=== PATIENT | female | born 1935 | race Caucasian/White ===

== ENCOUNTER 2017-11-08 14:23 | Inpatient (IN) | payer MEDICARE, OTHER ==
[2017-11-08] MEDS ORDERED: Sodium Chloride 0.9% 2.5 ML Syringe FLUSH PRN (14:52)
[2017-11-08] MEDS ORDERED: Sodium Chloride 0.9% 10 ML Syringe FLUSH PRN (14:52)
[2017-11-08] MEDS ORDERED: Albuterol/Ipratropium 3.0-0.5 MG/3 ML Neb Soln NEB ONE (14:57)
--- NOTE | 2017-11-08 15:01 | EDM.PDOC ---
<Rene Matute J - Last Filed: 11/08/17 14:58> ED HPI GENERAL MEDICAL PROBLEM - General Chief Complaint: General Stated Complaint: COLD COUGHING Time Seen by Provider: 11/08/17 14:54 - History of Present Illness INITIAL COMMENTS - FREE TEXT/NARRATIVE: HISTORY AND PHYSICAL: History of present illness: Patient is an 82-year-old white female presents with a concern of fever cough congestion 3 days she has history of COPD she uses O2 and home nebulizer. She denies nausea vomiting chest pain abdominal pain she did not get immunized for influenza this year pulse oximetry 88% on room air upon arrival Review of systems: As per history of present illness and below otherwise all systems reviewed and negative. Past medical history: As per history of present illness and as reviewed below otherwise noncontributory. Surgical history: As per history of present illness and as reviewed below otherwise noncontributory. Social history: No reported history of drug or alcohol abuse. Family history: As per history of present illness and as reviewed below otherwise noncontributory. Physical exam: HEENT: Atraumatic, normocephalic, pupils reactive, negative for conjunctival pallor or scleral icterus, mucous membranes moist, throat clear, neck supple, nontender, trachea midline. Lungs: Slightly coarse and diminished bilaterally, breath sounds equal bilaterally, chest nontender. Heart: S1S2, regular, negative for clicks, rubs, or JVD. Abdomen: Soft, nondistended, nontender. Negative for masses or hepatosplenomegaly. Negative for costovertebral tenderness. Pelvis: Stable nontender. Genitourinary: Deferred. Rectal: Deferred. Extremities: Atraumatic, negative for cords or calf pain. Neurovascular unremarkable. Neuro: Awake, alert, oriented. Cranial nerves II through XII unremarkable. Cerebellum unremarkable. Motor and sensory unremarkable throughout. Exam nonfocal. Diagnostics: CBC CMP troponin PT/INR lactic acid blood culture 2 UA urine culture chest x- ray EKG influenza screen ABG Therapeutics: IV O2 monitor albuterol ipratropium nebulizer Impression: #1 acute febrile illness #2 history of COPD #3 hypoxemia Definitive disposition and diagnosis as appropriate pending reevaluation and review of above. - Related Data Allergies Allergy/AdvReac Type Severity Reaction Status Date / Time No Known Allergies Allergy Verified 07/06/15 14:28 Home Meds: Home Meds Aspirin 81 mg PO DAILY 12/26/17 [History] Budesonide/Formoterol Fumarate [Symbicort 160-4.5 Mcg Inhaler] 1 inh IH ASDIRECTED PRN 11/08/17 [History] Fluticasone/Salmeterol [Advair 250-50 Diskus] 3 inhalation IH ASDIRECTED PRN [History] Furosemide [Lasix] 20 mg PO DAILY 11/08/17 [History] Lisinopril/Hydrochlorothiazide [Lisinopril-Hctz 20-12.5 mg Tab] 2 tab PO DAILY 11/08/17 [History] Montelukast [Singulair] 1 tab PO DAILY 11/08/17 [History] Potassium Chloride [Klor-Con M20] 20 meq PO DAILY 11/08/17 [History] Social & Family History - Tobacco Use Smoking Status *Q: Former Smoker Years of Tobacco use: 30 Packs/Tins Daily: 3 - Recreational Drug Use Recreational Drug Use: No ED ROS GENERAL - Review of Systems Review Of Systems: ROS reveals no pertinent complaints other than HPI. ED EXAM, GENERAL - Physical Exam Exam: See Below (See dictation) Course - Vital Signs Last Recorded V/S: Last Vital Signs Temp 100.2 F 11/08/17 14:56 Pulse 114 H 11/08/17 14:56 Resp 24 H 11/08/17 14:56 BP 126/60 11/08/17 14:56 Pulse Ox 85 L 11/08/17 14:56 - Orders/Labs/Meds Orders: Active Orders 24 hr Category Date Time Status EKG Documentation Completion [RC] STAT Care 11/08/17 14:52 Active Oxygen Therapy, ED [RC] ASDIRECTED Care 11/08/17 14:52 Active Pulse Oximetry [RC] ASDIRECTED Care 11/08/17 14:53 Active RT Aerosol Therapy [RC] ASDIRECTED Care 11/08/17 14:57 Active Chest 1V Frontal [CR] Stat Exams 11/08/17 14:54 Taken CULTURE BLOOD [BC] Stat Lab 11/08/17 15:11 Received CULTURE BLOOD [BC] Stat Lab 11/08/17 15:16 Results CULTURE URINE [RM] Stat Lab 11/08/17 14:53 Uncollected UA W/MICROSCOPIC [URIN] Stat Lab 11/08/17 14:53 Uncollected Levofloxacin/Dextrose 5%-Water [Levaquin in D5W 500 MG/ Med 11/08/17 15:57 Active 100 ML] 500 mg Premix Bag 1 bag IV ONETIME Sodium Chloride 0.9% [Normal Saline] 1,000 ml Med 11/08/17 15:57 Active IV STAT Sodium Chloride 0.9% [Saline Flush] Med 11/08/17 14:52 Active 10 ml FLUSH ASDIRECTED PRN Sodium Chloride 0.9% [Saline Flush] Med 11/08/17 14:52 Active 2.5 ml FLUSH ASDIRECTED PRN Blood Culture x2 Reflex Set [OM.PC] Stat Oth 11/08/17 14:53 Ordered Saline Lock Insert [OM.PC] Stat Oth 11/08/17 14:52 Ordered Medication Orders Levofloxacin/Dextrose 500 mg/ (Premix) 100 mls @ 100 mls/hr IV ONETIME ONE Stop: 11/08/17 16:56 Sodium Chloride (Normal Saline) 1,000 mls @ 125 mls/hr IV STAT ONE Stop: 11/08/17 23:56 Sodium Chloride (Saline Flush) 10 ml FLUSH ASDIRECTED PRN PRN Reason: Keep Vein Open Last Admin: 11/08/17 15:31 Dose: 10 ml Sodium Chloride (Saline Flush) 2.5 ml FLUSH ASDIRECTED PRN PRN Reason: Keep Vein Open Last Admin: 11/08/17 15:31 Dose: 2.5 ml Labs: Laboratory Tests 11/08/17 11/08/17 11/08/17 Range/Units 15:11 15:11 15:11 WBC 22.32 H (4.0-11.0) K/uL RBC 4.43 (4.30-5.90) M/uL Hgb 13.0 (12.0-16.0) g/dL Hct 39.3 (36.0-46.0) % MCV 88.7 (80.0-98.0) fL MCH 29.3 (27.0-32.0) pg MCHC 33.1 (31.0-37.0) g/dL RDW Std Deviation 45.4 (28.0-62.0) fl RDW Coeff of Alexandro 14 (11.0-15.0) % Plt Count 297 (150-400) K/uL MPV 10.50 (7.40-12.00) fL Add Manual Diff YES Neutrophils % (Manual) 77 (48.0-80.0) % Band Neutrophils % 9 % Lymphocytes % (Manual) 6 L (16.0-40.0) % Monocytes % (Manual) 6 (0.0-15.0) % Metamyelocytes % 1 % Myelocytes % 1 % Nucleated RBC % 0.0 /100WBC Absolute Seg Neuts 17.2 H (1.4-5.7) Band Neutrophils # 2.0 Lymphocytes # (Manual) 1.3 (0.6-2.4) Monocytes # (Manual) 1.3 H (0.0-0.8) Absolute Metamyelocyte 0.2 Absolute Myelocytes 0.2 Nucleated RBCs # 0 K/uL INR 1.07 (0.86-1.11) ABG pH (7.35-7.45) ABG pCO2 (35-45) mmHG ABG pO2 (75-100) mmHG ABG HCO3 (22-26) mEq/L ABG Total CO2 ABG Base Excess (-2.0-2.0) Lactate 2.2 H (0.20-2.00) mmol/L Sodium (136-146) mmol/L Potassium (3.5-5.1) mmol/L Chloride (98-110) mmol/L Carbon Dioxide (21-31) mmol/L BUN (6.0-23.0) mg/dL Creatinine (0.6-1.5) mg/dL Est Cr Clr Drug Dosing mL/min Estimated GFR (MDRD) ml/min Glucose (60-110) mg/dL Calcium (8.8-10.8) mg/dL Total Bilirubin (0.1-1.5) mg/dL AST (5-40) IU/L ALT (8-54) IU/L Alkaline Phosphatase (40-150) Troponin I (0.0-0.29) NG/ML B-Natriuretic Peptide (<100) PG/ML Total Protein (6.0-8.0) g/dL Albumin (3.4-4.8) g/dL Globulin (2.0-3.5) g/dL Albumin/Globulin Ratio (1.3-2.8) 12/11/08/17 11/08/17 Range/Units 15:11 15:11 15:46 WBC (4.0-11.0) K/uL RBC (4.30-5.90) M/uL Hgb (12.0-16.0) g/dL Hct (36.0-46.0) % MCV (80.0-98.0) fL MCH (27.0-32.0) pg MCHC (31.0-37.0) g/dL RDW Std Deviation (28.0-62.0) fl RDW Coeff of Alexandro (11.0-15.0) % Plt Count (150-400) K/uL MPV (7.40-12.00) fL Add Manual Diff Neutrophils % (Manual) (48.0-80.0) % Band Neutrophils % % Lymphocytes % (Manual) (16.0-40.0) % Monocytes % (Manual) (0.0-15.0) % Metamyelocytes % % Myelocytes % % Nucleated RBC % /100WBC Absolute Seg Neuts (1.4-5.7) Band Neutrophils # Lymphocytes # (Manual) (0.6-2.4) Monocytes # (Manual) (0.0-0.8) Absolute Metamyelocyte Absolute Myelocytes Nucleated RBCs # K/uL INR (0.86-1.11) ABG pH 7.517 H (7.35-7.45) ABG pCO2 34 L (35-45) mmHG ABG pO2 79 (75-100) mmHG ABG HCO3 28 H (22-26) mEq/L ABG Total CO2 24.8 ABG Base Excess 4.9 H (-2.0-2.0) Lactate (0.20-2.00) mmol/L Sodium 138 (136-146) mmol/L Potassium 4.0 (3.5-5.1) mmol/L Chloride 98 (98-110) mmol/L Carbon Dioxide 26 (21-31) mmol/L BUN 21 (6.0-23.0) mg/dL Creatinine 1.2 (0.6-1.5) mg/dL Est Cr Clr Drug Dosing 34.42 mL/min Estimated GFR (MDRD) 43.1 ml/min Glucose 289 H (60-110) mg/dL Calcium 9.6 (8.8-10.8) mg/dL Total Bilirubin 1.3 (0.1-1.5) mg/dL AST 17 (5-40) IU/L ALT 15 (8-54) IU/L Alkaline Phosphatase 93 (40-150) Troponin I < 0.10 (0.0-0.29) NG/ML B-Natriuretic Peptide 28 (<100) PG/ML Total Protein 7.2 (6.0-8.0) g/dL Albumin 4.0 (3.4-4.8) g/dL Globulin 3.2 (2.0-3.5) g/dL Albumin/Globulin Ratio 1.3 (1.3-2.8) Meds: Medications Generic Name Dose Route Start Last Admin Trade Name Freq PRN Reason Stop Dose Admin Levofloxacin/Dextrose 500 mg/ 100 mls @ 100 mls/hr 11/08/17 15:57 Premix IV 11/08/17 16:56 ONETIME ONE Sodium Chloride 1,000 mls @ 125 mls/hr 11/08/17 15:57 Normal Saline IV 11/08/17 23:56 STAT ONE Sodium Chloride 10 ml 11/08/17 14:52 11/08/17 15:31 Saline Flush FLUSH 10 ml ASDIRECTED PRN Administration Keep Vein Open Sodium Chloride 2.5 ml 11/08/17 14:52 11/08/17 15:31 Saline Flush FLUSH 2.5 ml ASDIRECTED PRN Administration Keep Vein Open Discontinued Medications Generic Name Dose Route Start Last Admin Trade Name Freq PRN Reason Stop Dose Admin Albuterol/Ipratropium 3 ml 11/08/17 14:57 11/08/17 15:23 Duoneb 3.0-0.5 Mg/3 Ml NEB 11/08/17 14:58 3 ml ONETIME ONE Administration Departure - Departure Disposition: Admitted As Inpatient 67 Clinical Impression: Hypoxemia Pneumonia Qualifiers: Pneumonia type: due to unspecified organism Laterality: right Lung location: lower lobe of lung Qualified Code(s): J18.1 - Lobar pneumonia, unspecified organism COPD (chronic obstructive pulmonary disease) Qualifiers: COPD type: unspecified COPD Qualified Code(s): J44.9 - Chronic obstructive pulmonary disease, unspecified - Discharge Information Referrals: PCP,None [Primary Care Provider] - Forms: ED Department Discharge - My Orders Last 24 Hours: My Active Orders 11/08/17 15:57 Levofloxacin/Dextrose 5%-Water [Levaquin in D5W 500 MG/100 ML] 500 mg Premix Bag 1 bag IV ONETIME Sodium Chloride 0.9% [Normal Saline] 1,000 ml IV STAT - Assessment/Plan Last 24 Hours: My Active Orders 11/08/17 15:57 Levofloxacin/Dextrose 5%-Water [Levaquin in D5W 500 MG/100 ML] 500 mg Premix Bag 1 bag IV ONETIME Sodium Chloride 0.9% [Normal Saline] 1,000 ml IV STAT <Fernando Colbert - Last Filed: 11/08/17 16:21> ED HPI GENERAL MEDICAL PROBLEM - History of Present Illness INITIAL COMMENTS - FREE TEXT/NARRATIVE: CBC has a white count of 22.32, lactic acid of 2.2, chest x-ray was reviewed, she will be admitted to [facility] - per Dr. Spencer as an inpatient for pneumonia r/o sepsis. Will place patient on telemetry. Departure - Departure Time of Disposition: 16:20
[2017-11-08 15:52] LABS: CHLORIDE,CL 98 mmol/L (98-110); SODIUM,NA 138 mmol/L (136-146)
[2017-11-08] MEDS ORDERED: Levofloxacin/Dextrose 5%-Water 250 MG in Premix Bag 1 BAG IV ONE (15:57)
[2017-11-08] MEDS ORDERED: Sodium Chloride 0.9% 1,000 ML IV ONE (15:57)
[2017-11-08] MEDS ORDERED: Levofloxacin/Dextrose 5%-Water 500 MG in Premix Bag 1 BAG IV ONE (15:57)
--- NOTE | 2017-11-08 17:05 | PCM.HP ---
H&P History of Present Illness - General Date of Service: 11/08/17 Admit Problem/Dx: Admission Diagnosis/Problem Admission Diagnosis/Problem Pneumonia Source of Information: Patient, Family History Limitations: Reports: No Limitations - History of Present Illness Initial Comments - Free Text/Narative: This 82 year old female ith h of COPD and HTN presented to the ED today with cough, shortness of breath and general malaise. She reports 1 week ago she had an URI and took mucinex then felt better. Yesterday she started feeling ill again and hasn't been eating or drinking well. She denies fever at home, some productive cough, green phelgm. She reports feeling generally ill with poor appetite. She denies chest pain, but is having dyspnea. She did not get her influenza vaccine this year, "I don't believe it those things." She recently had a sick contact with a grandchild, who was diagnosed with strep throat. She denies sore throat, sinus congestion, headaches, abdominal pain or urinary symptoms. In the ED leukocytosis noted at 22,320. Respiratory alkalosis noted as well pH 7.5 Co2 34 and O2 79, Bicarb 29. Lactate elevated at 2.2. Troponin negative and influenza swab negative. She was noted to be hypoxic and tacycardic on admission. BC obtained and pending. CXR revealed bilateral infiltrates. She was treated with IVFs and Levaquin IV for pneumonia. She will be admitted for sepsis , CAP, and hypoxia. - Related Data Allergies/Adverse Reactions: Allergies Allergy/AdvReac Type Severity Reaction Status Date / Time No Known Allergies Allergy Verified 07/06/15 14:28 Home Medications: Home Meds Aspirin 81 mg PO DAILY 11/08/17 [History] Budesonide/Formoterol Fumarate [Symbicort 160-4.5 Mcg Inhaler] 1 inh IH ASDIRECTED PRN 11/08/17 [History] Fluticasone/Salmeterol [Advair 250-50 Diskus] 3 inhalation IH ASDIRECTED PRN [History] Furosemide [Lasix] 20 mg PO DAILY 11/08/17 [History] Lisinopril/Hydrochlorothiazide [Lisinopril-Hctz 20-12.5 mg Tab] 2 tab PO DAILY 11/08/17 [History] Montelukast [Singulair] 10 tab PO DAILY 11/08/17 [History] Potassium Chloride [Klor-Con M20] 20 meq PO DAILY 11/08/17 [History] Past Medical History HEENT History: Reports: None Cardiovascular History: Reports: Hypertension. Denies: Afib, Blood Clots/VTE/ DVT, CAD, Heart Failure, [place] Respiratory History: Reports: Asthma, COPD. Denies: PE Gastrointestinal History: Reports: None. Denies: GERD, GI Bleed Genitourinary History: Reports: None. Denies: Acute Renal Failure, Chronic Renal Insuffiency [employer] PROVIDER History: Reports: None Musculoskeletal History: Reports: None Neurological History: Reports: None. Denies: CVA, TIA Psychiatric History: Reports: None Endocrine/Metabolic History: Reports: Obesity/BMI 30+. Denies: Diabetes, Type II, Hypothyroidism Hematologic History: Reports: None Immunologic History: Reports: None Oncologic (Cancer) History: Reports: None Dermatologic History: Reports: None - Infectious Disease History Infectious Disease History: Reports: Chicken Pox, Hepatitis non A,B,C, Measles, Mumps - Past Surgical History Head Surgeries/Procedures: Reports: None HEENT Surgical History: Reports: None Cardiovascular Surgical History: Reports: None Respiratory Surgical History: Reports: None GI Surgical History: Reports: Other (See Below) Female Surgical History: Reports: None Endocrine Surgical History: Reports: None Musculoskeletal Surgical History: Reports: None Oncologic Surgical History: Reports: None Dermatological Surgical History: Reports: None Social & Family History - Family History Family Medical History: Noncontributory - Tobacco Use Smoking Status *Q: Former Smoker Years of Tobacco use: 30 Packs/Tins Daily: 3 Used Tobacco, but Quit: Yes - Caffeine Use Caffeine Use: Reports: None - Alcohol Use Alcohol Use History: No - Recreational Drug Use Recreational Drug Use: No - Living Situation & Occupation Living situation: Reports: with Spouse Occupation: Retired H&P Review of Systems - Review of Systems: Review Of Systems: See Below General: Reports: Malaise, Fatigue, Decreased Appetite. Denies: Fever, Chills HEENT: Reports: No Symptoms. Denies: Headaches, Hearing Changes, Sinus Congestion, Sore Throat, Visual Changes Pulmonary: Reports: Shortness of Breath, Cough, Sputum. Denies: Hemoptysis Cardiovascular: Reports: No Symptoms. Denies: Chest Pain, Dyspnea on Exertion, Orthopnea, Lightheadedness Gastrointestinal: Reports: Decreased Appetite. Denies: Abdominal Pain, Black Stool, Bloody Stool, Distension, Nausea, Vomiting Genitourinary: Reports: No Symptoms. Denies: Dysuria, Frequency, Burning, Pain , Urgency Musculoskeletal: Reports: No Symptoms Skin: Reports: No Symptoms Psychiatric: Reports: No Symptoms. Denies: Confusion Hematologic/Lymphatic: Reports: No Symptoms Immunologic: Reports: No Symptoms Exam - Exam Exam: See Below - Vital Signs Vital Signs: Last Vital Signs Temp 100.2 F 11/08/17 14:56 Pulse 114 H 11/08/17 14:56 Resp 24 H 11/08/17 14:56 BP 126/60 11/08/17 14:56 Pulse Ox 85 L 11/08/17 14:56 Weight: 90.718 kg - Exam General: Alert, Oriented, Cooperative HEENT: Conjunctiva Clear. No: Mucosa Moist & [place] (dry mucus membranes) Neck: Supple, Trachea Midline, Full Range of Motion. No: Lymphadenopathy Lungs: Decreased Breath Sounds (bilaterally), Crackles (fine crackles bilaterally), Other (moist congested cough noted). No: Wheezing Cardiovascular: Regular Rate, Regular Rhythm, Normal S1, Normal S2 GI/Abdominal Exam: Normal Bowel Sounds, Soft, Non-Tender, No Organomegaly, No Distention, No Abnormal Bruit, No Mass, Pelvis Stable Back Exam: Normal Inspection, Full Range of Motion, NT Extremities: Normal Inspection, Normal Range of Motion, Non-Tender, No Pedal Edema, Normal Capillary Refill Neuro Extensive - Mental Status: Alert, Oriented x3, Normal Mood/Affect, Normal Cognition Neuro Extensive - Motor, Sensory, Reflexes: CN II-XII Intact, Normal Gait, Normal Reflexes Psychiatric: Alert, Normal Affect, Normal Mood - Patient Data Lab Results Last 24 hrs: Laboratory Results - last 24 hr 11/08/17 11/08/17 11/08/17 Range/Units 15:11 15:11 15:11 WBC 22.32 H (4.0-11.0) K/uL RBC 4.43 (4.30-5.90) M/uL Hgb 13.0 (12.0-16.0) g/dL Hct 39.3 (36.0-46.0) % MCV 88.7 (80.0-98.0) fL MCH 29.3 (27.0-32.0) pg MCHC 33.1 (31.0-37.0) g/dL RDW Std Deviation 45.4 (28.0-62.0) fl RDW Coeff of Alexandro 14 (11.0-15.0) % Plt Count 297 (150-400) K/uL MPV 10.50 (7.40-12.00) fL Add Manual Diff YES Neutrophils % (Manual) 77 (48.0-80.0) % Band Neutrophils % 9 % Lymphocytes % (Manual) 6 L (16.0-40.0) % Monocytes % (Manual) 6 (0.0-15.0) % Metamyelocytes % 1 % Myelocytes % 1 % Nucleated RBC % 0.0 /100WBC Absolute Seg Neuts 17.2 H (1.4-5.7) Band Neutrophils # 2.0 Lymphocytes # (Manual) 1.3 (0.6-2.4) Monocytes # (Manual) 1.3 H (0.0-0.8) Absolute Metamyelocyte 0.2 Absolute Myelocytes 0.2 Nucleated RBCs # 0 K/uL INR 1.07 (0.86-1.11) ABG pH (7.35-7.45) ABG pCO2 (35-45) mmHG ABG pO2 (75-100) mmHG ABG HCO3 (22-26) mEq/L ABG Total CO2 ABG Base Excess (-2.0-2.0) Lactate 2.2 H (0.20-2.00) mmol/L Sodium (136-146) mmol/L Potassium (3.5-5.1) mmol/L Chloride (98-110) mmol/L Carbon Dioxide (21-31) mmol/L BUN (6.0-23.0) mg/dL Creatinine (0.6-1.5) mg/dL Est Cr Clr Drug Dosing mL/min Estimated GFR (MDRD) ml/min Glucose (60-110) mg/dL Calcium (8.8-10.8) mg/dL Total Bilirubin (0.1-1.5) mg/dL AST (5-40) IU/L ALT (8-54) IU/L Alkaline Phosphatase (40-150) Troponin I (0.0-0.29) NG/ML B-Natriuretic Peptide (<100) PG/ML Total Protein (6.0-8.0) g/dL Albumin (3.4-4.8) g/dL Globulin (2.0-3.5) g/dL Albumin/Globulin Ratio (1.3-2.8) 11/08/17 11/08/17 11/08/17 Range/Units 15:11 15:11 15:46 WBC (4.0-11.0) K/uL RBC (4.30-5.90) M/uL Hgb (12.0-16.0) g/dL Hct (36.0-46.0) % MCV (80.0-98.0) fL MCH (27.0-32.0) pg MCHC (31.0-37.0) g/dL RDW Std Deviation (28.0-62.0) fl RDW Coeff of Alexandro (11.0-15.0) % Plt Count (150-400) K/uL MPV (7.40-12.00) fL Add Manual Diff Neutrophils % (Manual) (48.0-80.0) % Band Neutrophils % % Lymphocytes % (Manual) (16.0-40.0) % Monocytes % (Manual) (0.0-15.0) % Metamyelocytes % % Myelocytes % % Nucleated RBC % /100WBC Absolute Seg Neuts (1.4-5.7) Band Neutrophils # Lymphocytes # (Manual) (0.6-2.4) Monocytes # (Manual) (0.0-0.8) Absolute Metamyelocyte Absolute Myelocytes Nucleated RBCs # K/uL INR (0.86-1.11) ABG pH 7.517 H (7.35-7.45) ABG pCO2 34 L (35-45) mmHG ABG pO2 79 (75-100) mmHG ABG HCO3 28 H (22-26) mEq/L ABG Total CO2 24.8 ABG Base Excess 4.9 H (-2.0-2.0) Lactate (0.20-2.00) mmol/L Sodium 138 (136-146) mmol/L Potassium 4.0 (3.5-5.1) mmol/L Chloride 98 (98-110) mmol/L Carbon Dioxide 26 (21-31) mmol/L BUN 21 (6.0-23.0) mg/dL Creatinine 1.2 (0.6-1.5) mg/dL Est Cr Clr Drug Dosing 34.42 mL/min Estimated GFR (MDRD) 43.1 ml/min Glucose 289 H (60-110) mg/dL Calcium 9.6 (8.8-10.8) mg/dL Total Bilirubin 1.3 (0.1-1.5) mg/dL AST 17 (5-40) IU/L ALT 15 (8-54) IU/L Alkaline Phosphatase 93 (40-150) Troponin I < 0.10 (0.0-0.29) NG/ML B-Natriuretic Peptide 28 (<100) PG/ML Total Protein 7.2 (6.0-8.0) g/dL Albumin 4.0 (3.4-4.8) g/dL Globulin 3.2 (2.0-3.5) g/dL Albumin/Globulin Ratio 1.3 (1.3-2.8) Result Diagrams: 11/08/17 15:11 11/08/17 15:11 Joe Results Last 24 hrs: Microbiology 11/08/17 15:13 Influenza Type A Antigen Screen - Final Nasopharyngeal Swab NEGATIVE INFLUENZA A VIRUS AG Influenza Type B Antigen Screen - Final NEGATIVE INFLUENZA B VIRUS AG 11/08/17 15:16 Anaerobic Blood Culture - Final Blood - Venous - Lab Draw *Q Meaningful Use (ADM) - VTE *Q VTE Criteria *Q: - Stroke *Q Stroke Criteria *Q: - AMI *Q AMI Criteria *Q: - Problem List (1) Sepsis SNOMED Code(s): 31228359 ICD Code: A41.9 - SEPSIS, UNSPECIFIED ORGANISM Status: Acute Current Visit: Yes Qualifiers: Sepsis type: sepsis due to unspecified organism Qualified Code(s): A41.9 - Sepsis, unspecified organism (2) Pneumonia SNOMED Code(s): 641107598 ICD Code: J18.9 - PNEUMONIA, UNSPECIFIED ORGANISM Status: Acute Current Visit: Yes Qualifiers: Pneumonia type: due to unspecified organism Laterality: bilateral Lung location: lower lobe of lung Qualified Code(s): J18.9 - Pneumonia, unspecified organism (3) Hypoxemia SNOMED Code(s): 007060678 ICD Code: R09.02 - HYPOXEMIA Status: Acute Current Visit: Yes (4) COPD (chronic obstructive pulmonary disease) SNOMED Code(s): 97713150 ICD Code: J44.9 - CHRONIC OBSTRUCTIVE PULMONARY DISEASE, UNSPECIFIED Status : Chronic Current Visit: Yes Qualifiers: COPD type: unspecified COPD Qualified Code(s): J44.9 - Chronic obstructive pulmonary disease, unspecified (5) HTN (hypertension) SNOMED Code(s): 37699060 ICD Code: I10 - ESSENTIAL (PRIMARY) HYPERTENSION Status: Chronic Current Visit: Yes Qualifiers: Hypertension type: essential hypertension Qualified Code(s): I10 - Essential (primary) hypertension Problem List Initiated/Reviewed/Updated: Yes Orders Last 24hrs: Active Orders 24 hr Category Date Time Status Admission Status [Patient Status] [ADT] Stat ADT 11/08/17 16:16 Active EKG Documentation Completion [RC] STAT Care 11/08/17 14:52 Active Oxygen Therapy, ED [RC] ASDIRECTED Care 11/08/17 14:52 Active Pulse Oximetry [RC] ASDIRECTED Care 11/08/17 14:53 Active RT Aerosol Therapy [RC] ASDIRECTED Care 11/08/17 14:57 Active Chest 1V Frontal [CR] Stat Exams 11/08/17 14:54 Taken CULTURE BLOOD [BC] Stat Lab 11/08/17 15:11 Received CULTURE BLOOD [BC] Stat Lab 11/08/17 15:16 Results CULTURE URINE [RM] Stat Lab 11/08/17 14:53 Uncollected UA W/MICROSCOPIC [URIN] Stat Lab 11/08/17 14:53 Uncollected Sodium Chloride 0.9% [Normal Saline] 1,000 ml Med 11/08/17 15:57 Active IV STAT Sodium Chloride 0.9% [Saline Flush] Med 11/08/17 14:52 Active 10 ml FLUSH ASDIRECTED PRN Sodium Chloride 0.9% [Saline Flush] Med 11/08/17 14:52 Active 2.5 ml FLUSH ASDIRECTED PRN Blood Culture x2 Reflex Set [OM.PC] Stat Oth 11/08/17 14:53 Ordered Saline Lock Insert [OM.PC] Stat Oth 11/08/17 14:52 Ordered Medication Orders Sodium Chloride (Normal Saline) 1,000 mls @ 125 mls/hr IV STAT ONE Stop: 11/08/17 23:56 Last Admin: 11/08/17 16:20 Dose: 125 mls/hr Sodium Chloride (Saline Flush) 10 ml FLUSH ASDIRECTED PRN PRN Reason: Keep Vein Open Last Admin: 11/08/17 15:31 Dose: 10 ml Sodium Chloride (Saline Flush) 2.5 ml FLUSH ASDIRECTED PRN PRN Reason: Keep Vein Open Last Admin: 11/08/17 15:31 Dose: 2.5 ml Assessment/Plan Comment:: This 82 year old female admitted with sepsis, community acquired pneumonia, and hypoxia 1. Sepsis: BC pending will obtain sputum culture and UA. Most likely secondary to bilateral lower lobe pneumonia. Due to history of HTN with Lasix use will give Bolus of fluid of 1 l now and monitor response and lactate. Will try not overload patient. 2. CAP: Levaquin 750 mg IV q48 due to CrCl. Will give extra 250 mg to equal 750mg today. . Will monitor Oxygen and Duonebs as well. No wheezing heard. Keep sats 88% or better. 3. Hx COPD: Does not appear to be in acute exacerbation. Will not start steroids. Monitor Oxygen needs and wean when possible, keep sats 88% or better. Continue all home inhalers. 4. HTN: Stable. Hold antihypertensives due to sepsis. Monitor in am. VTE prophylaxis: Heparin BID Dispo?: 2-3 days pending improvement. patient is to return to home in [place] on Nov 15.
[2017-11-08] MEDS ORDERED: Albuterol 0.083% 2.5 MG/3 ML Neb Soln NEB PRN (17:17)
[2017-11-08] MEDS ORDERED: Acetaminophen 325 MG Tab PO PRN (17:17)
[2017-11-08] MEDS ORDERED: Sodium Chloride 0.9% 1,000 ML IV SCH (17:30)
[2017-11-08] MEDS: Levofloxacin/Dextrose 5%-Water 250 MG in Premix Bag 1 BAG IV SCH ×2 (17:38→17:51)
[2017-11-08] MEDS: Albuterol/Ipratropium 3.0-0.5 MG/3 ML Neb Soln NEB SCH ×2 (18:43→21:58)
[2017-11-08] MEDS: Fluticasone/Salmeterol 250-50 MCG Inhalation Powder 14/Diskus INH SCH (20:48)
[2017-11-08] MEDS: Heparin Sodium 5,000 Units/ML Vial SUBCUT SCH (20:50)
[2017-11-09] MEDS: Albuterol/Ipratropium 3.0-0.5 MG/3 ML Neb Soln NEB SCH ×5 (02:01→18:18)
[2017-11-09] MEDS ORDERED: Aspirin 81 MG Tab.Chew PO SCH (09:00)
--- NOTE | 2017-11-09 09:25 | PCM.PN ---
- General Info Date of Service: 11/09/17 Admission Dx/Problem (Free Text): Admission Diagnosis/Problem Admission Diagnosis/Problem Pneumonia Subjective Update: Patient feeling better today. Currently on 1L O2. She is not on home O2. SHe is still coughing and having sob with activity. She is ambulatory and tolerating po intake. - Review of Systems General: Reports: No Symptoms HEENT: Reports: No Symptoms Pulmonary: Reports: Shortness of Breath, Cough Cardiovascular: Reports: No Symptoms Gastrointestinal: Reports: No Symptoms Genitourinary: Reports: No Symptoms Musculoskeletal: Reports: No Symptoms Skin: Reports: No Symptoms Neurological: Reports: No Symptoms Psychiatric: Reports: No Symptoms - Patient Data Vitals - Most Recent: Last Vital Signs Temp 36.8 C 11/09/17 08:00 Pulse 80 11/09/17 08:00 Resp 16 11/09/17 08:00 BP 107/48 L 11/09/17 08:00 Pulse Ox 94 L 11/09/17 08:00 Weight - Most Recent: 92.896 kg I&O - Last 24 Hours: Intake & Output 11/08/17 11/09/17 11/09/17 22:59 06:59 14:59 Intake Total 1050 200 Output Total 200 Balance 1050 0 Lab Results Last 24 Hours: Laboratory Results - last 24 hr 11/08/17 11/08/17 11/09/17 Range/Units 19:09 22:10 05:06 WBC 19.88 H (4.0-11.0) K/uL RBC 4.08 L (4.30-5.90) M/uL Hgb 11.7 L (12.0-16.0) g/dL Hct 36.5 (36.0-46.0) % MCV 89.5 (80.0-98.0) fL MCH 28.7 (27.0-32.0) pg MCHC 32.1 (31.0-37.0) g/dL RDW Std Deviation 45.8 (28.0-62.0) fl RDW Coeff of Alexandro 14 (11.0-15.0) % Plt Count 256 (150-400) K/uL MPV 10.50 (7.40-12.00) fL Add Manual Diff YES Neutrophils % (Manual) 78 (48.0-80.0) % Band Neutrophils % 6 % Lymphocytes % (Manual) 9 L (16.0-40.0) % Monocytes % (Manual) 6 (0.0-15.0) % Eosinophils % (Manual) 1 (0.0-7.0) % Nucleated RBC % 0.0 /100WBC Absolute Seg Neuts 15.5 H (1.4-5.7) Band Neutrophils # 1.2 Lymphocytes # (Manual) 1.8 (0.6-2.4) Monocytes # (Manual) 1.2 H (0.0-0.8) Eosinophils # (Manual) 0.2 (0.0-0.7) Nucleated RBCs # 0 K/uL Lactate 2.0 (0.20-2.00) mmol/L Sodium (136-146) mmol/L Potassium (3.5-5.1) mmol/L Chloride (98-110) mmol/L Carbon Dioxide (21-31) mmol/L BUN (6.0-23.0) mg/dL Creatinine (0.6-1.5) mg/dL Est Cr Clr Drug Dosing mL/min Estimated GFR (MDRD) ml/min Glucose (60-110) mg/dL Calcium (8.8-10.8) mg/dL Urine Color YELLOW Urine Appearance HAZY Urine pH 5.5 (5.0-8.0) Ur Specific [place] >= 1.030 (1.001-1.035) Urine Protein 30 (NEGATIVE) mg/dL Urine Glucose (UA) NEGATIVE (NEGATIVE) mg/dL Urine Ketones NEGATIVE (NEGATIVE) mg/dL Urine Occult Blood NEGATIVE (NEGATIVE) Urine Nitrite NEGATIVE (NEGATIVE) Urine Bilirubin SMALL H (NEGATIVE) Urine Ictotest NEGATIVE Urine Urobilinogen 1.0 (<2.0) EU/dL Ur Leukocyte Esterase TRACE (NEGATIVE) Urine RBC 1-2 (0-2/HPF) Urine WBC 2-4 (0-5/HPF) Ur Epithelial Cells MODERATE (NONE-FEW) Urine Bacteria FEW (NEGATIVE) 11/09/17 Range/Units 05:06 WBC (4.0-11.0) K/uL RBC (4.30-5.90) M/uL Hgb (12.0-16.0) g/dL Hct (36.0-46.0) % MCV (80.0-98.0) fL MCH (27.0-32.0) pg MCHC (31.0-37.0) g/dL RDW Std Deviation (28.0-62.0) fl RDW Coeff of Alexandro (11.0-15.0) % Plt Count (150-400) K/uL MPV (7.40-12.00) fL Add Manual Diff Neutrophils % (Manual) (48.0-80.0) % Band Neutrophils % % Lymphocytes % (Manual) (16.0-40.0) % Monocytes % (Manual) (0.0-15.0) % Eosinophils % (Manual) (0.0-7.0) % Nucleated RBC % /100WBC Absolute Seg Neuts (1.4-5.7) Band Neutrophils # Lymphocytes # (Manual) (0.6-2.4) Monocytes # (Manual) (0.0-0.8) Eosinophils # (Manual) (0.0-0.7) Nucleated RBCs # K/uL Lactate (0.20-2.00) mmol/L Sodium 141 (136-146) mmol/L Potassium 3.7 (3.5-5.1) mmol/L Chloride 103 (98-110) mmol/L Carbon Dioxide 24 (21-31) mmol/L BUN 32 H (6.0-23.0) mg/dL Creatinine 1.8 H (0.6-1.5) mg/dL Est Cr Clr Drug Dosing 22.95 mL/min Estimated GFR (MDRD) 27.0 ml/min Glucose 177 H (60-110) mg/dL Calcium 9.3 (8.8-10.8) mg/dL Urine Color Urine Appearance Urine pH (5.0-8.0) Ur Specific [place] (1.001-1.035) Urine Protein (NEGATIVE) mg/dL Urine Glucose (UA) (NEGATIVE) mg/dL Urine Ketones (NEGATIVE) mg/dL Urine Occult Blood (NEGATIVE) Urine Nitrite (NEGATIVE) Urine Bilirubin (NEGATIVE) Urine Ictotest Urine Urobilinogen (<2.0) EU/dL Ur Leukocyte Esterase (NEGATIVE) Urine RBC (0-2/HPF) Urine WBC (0-5/HPF) Ur Epithelial Cells (NONE-FEW) Urine Bacteria (NEGATIVE) Joe Results Last 24 Hours: Microbiology 11/08/17 19:35 Gram Stain - Preliminary Sputum - Expectorated Med Orders - Current: Current Medications Acetaminophen (Tylenol) 650 mg PO Q4H PRN PRN Reason: Pain Albuterol (Proventil Neb Soln) 2.5 mg NEB Q2H PRN PRN Reason: Shortness Of Breath/wheezing Albuterol/Ipratropium (Duoneb 3.0-0.5 Mg/3 Ml) 3 ml NEB Q4HRRT [facility] Last Admin: 11/09/17 07:07 Dose: 3 ml Aspirin (Aspirin) 81 mg PO DAILY [facility] Heparin Sodium (Porcine) (Heparin Sodium) 5,000 units SUBCUT Q12HR [facility] Last Admin: 11/08/17 20:50 Dose: 5,000 units Levofloxacin/Dextrose 750 mg/ (Premix) 150 mls @ 100 mls/hr IV Q48H [facility] Montelukast Sodium (Singulair) 10 mg PO BEDTIME [facility] Fluticasone/Salmeterol (Advair Diskus 250-50) 1 puff INH BID [facility] Last Admin: 11/08/17 20:48 Dose: 1 puff Sodium Chloride (Saline Flush) 10 ml FLUSH ASDIRECTED PRN PRN Reason: Keep Vein Open Last Admin: 11/08/17 15:31 Dose: 10 ml Sodium Chloride (Saline Flush) 2.5 ml FLUSH ASDIRECTED PRN PRN Reason: Keep Vein Open Last Admin: 11/08/17 15:31 Dose: 2.5 ml Discontinued Medications Albuterol/Ipratropium (Duoneb 3.0-0.5 Mg/3 Ml) 3 ml NEB ONETIME ONE Stop: 11/08/17 14:58 Last Admin: 11/08/17 15:23 Dose: 3 ml Levofloxacin/Dextrose 500 mg/ (Premix) 100 mls @ 100 mls/hr IV ONETIME ONE Stop: 11/08/17 16:56 Last Admin: 11/08/17 16:20 Dose: 100 mls/hr Sodium Chloride (Normal Saline) 1,000 mls @ 125 mls/hr IV STAT ONE Stop: 11/08/17 23:56 Last Admin: 11/08/17 16:20 Dose: 125 mls/hr Sodium Chloride (Normal Saline) 1,000 mls @ 250 mls/hr IV ASDIRECTED [facility] Stop: 11/08/17 21:29 Last Admin: 11/08/17 17:38 Dose: 250 mls/hr Levofloxacin/Dextrose 250 mg/ (Premix) 50 mls @ 50 mls/hr IV 11/08/17@1800 [facility] Stop: 11/08/17 18:59 Last Admin: 11/08/17 17:51 Dose: 50 mls/hr - Exam Lungs: Normal Respiratory Effort, Decreased Breath Sounds (BL middle and lower chao with poor air movement ) Cardiovascular: Regular Rate, Regular Rhythm GI/Abdominal Exam: Normal Bowel Sounds, Soft, Non-Tender Back Exam: Normal Inspection Extremities: Normal Inspection, No Pedal Edema Peripheral Pulses: 2+: Radial (L), Radial (R) Skin: Intact Wound/Incisions: Erythema Psy/Mental Status: Alert, Normal Affect, Normal Mood - Problem List Review Problem List Initiated/Reviewed/Updated: Yes - Plan Plan:: This 82 year old female with history of Chronic Respiratory Failure on Home O2 admitted for Hypoxia and Sepsis secondary to CAP #Sepsis, secondary to CAP -hypoxia, hypotension, leukocytosis, BL plural infiltrates on CXR and elevated Lactic Acid at admission -Lactic acid normalized with IVF, hypotension/hypoxia/leukocytosis improving -BC NGTD -on Levaquin 750 mg IV [id number] plan: -DC Levaquin due to PEDRO -start Rocephin IV and Azithromycin PO -f/u blood, urine and sputum cultures #CAP -plan as per above #Acute on Chronic Respiratory Failure -on Home O2 at 1L -currently requiring 3L O2 plan: -continue to wean O2 #PEDRO, likely secondary to hypoperfusion -hold ASA today -switch levaquin IV to Rocephin IV and Azithromycin PO -start IV NS at 125 ml/hour -strict I&O's and monitor renal function #COPD, stable -duonebs -continue home advair, proventin and singulair #HTN, controlled -hold home meds until bp normalizes VTE prophylaxis: Heparin BID Dispo: 2-3 days pending improvement. patient is to return to home in [place] on Nov 15.
[2017-11-09] MEDS: Heparin Sodium 5,000 Units/ML Vial SUBCUT SCH ×2 (09:33→21:24)
[2017-11-09] MEDS: Fluticasone/Salmeterol 250-50 MCG Inhalation Powder 14/Diskus INH SCH ×2 (09:57→21:23)
[2017-11-09] MEDS ORDERED: Sodium Chloride 0.9% 1,000 ML IV ONE (10:20)
--- NOTE | 2017-11-09 10:41 | CR ---
EXAM DATE: 11/08/17 PATIENT'S AGE: 82 Patient: DIANDRA URIARTE Facility: [place], [place] Site . Site : [id number] Study: XRay Chest [id number] 4:07:11 PM Ordering Physician: Giovani López Final Report: INDICATIONS: Pain. Shortness of breath. TECHNIQUE: Chest, 1 AP portable view. COMPARISON: None FINDINGS: No pneumothorax, pleural effusion or airspace consolidation. No evidence of pulmonary edema. Cardiac and mediastinal contours are within normal limits. Upper abdomen and osseous structures show no acute abnormality. IMPRESSION: No evidence of acute cardiopulmonary disease. Dictated by Yong Walker MD @ 11/08/2017 5:15:12 PM Dictated by: Yong Walker MD @ 11/08/2017 17:15:20 (Electronic Signature) Report Signed by Proxy. UNITED HEALTH SERVICESAndrew
[2017-11-09] MEDS: cefTRIAXone 2 GM in Premix Bag 1 BAG IV SCH (10:52)
[2017-11-09] MEDS: Azithromycin 250 MG Tab PO SCH (10:53)
[2017-11-09] MEDS: Montelukast 10 MG Tab PO SCH (21:22)
[2017-11-10] MEDS: Albuterol/Ipratropium 3.0-0.5 MG/3 ML Neb Soln NEB SCH ×5 (00:25→23:12)
[2017-11-10] MEDS ORDERED: Sodium Chloride 0.9% 1,000 ML IV ONE (08:46)
[2017-11-10] MEDS: Heparin Sodium 5,000 Units/ML Vial SUBCUT SCH ×2 (08:55→20:18)
[2017-11-10] MEDS: Fluticasone/Salmeterol 250-50 MCG Inhalation Powder 14/Diskus INH SCH ×2 (09:04→20:18)
[2017-11-10] MEDS: Azithromycin 250 MG Tab PO SCH (09:40)
[2017-11-10] MEDS: cefTRIAXone 2 GM in Premix Bag 1 BAG IV SCH (09:40)
[2017-11-10] MEDS ORDERED: Levofloxacin/Dextrose 5%-Water 750 MG in Premix Bag 1 BAG IV SCH (16:00)
--- NOTE | 2017-11-10 16:01 | PCM.PN ---
- General Info Date of Service: 11/10/17 Admission Dx/Problem (Free Text): Admission Diagnosis/Problem Admission Diagnosis/Problem Pneumonia Subjective Update: Patient continues to improve. Patients daughter and are present and they state that patients home O2 is prescribed as 3L during sleep but she does not use oxygen during the day. Patient is currently still on 3L O2. She is ambulatory and tolerating po intake. She is eager for discharge. - Review of Systems General: Reports: No Symptoms HEENT: Reports: No Symptoms Pulmonary: Reports: Cough Cardiovascular: Reports: No Symptoms Gastrointestinal: Reports: No Symptoms Genitourinary: Reports: No Symptoms Musculoskeletal: Reports: No Symptoms Skin: Reports: No Symptoms Neurological: Reports: No Symptoms Psychiatric: Reports: No Symptoms - Patient Data Vitals - Most Recent: Last Vital Signs Temp 36.3 C 11/10/17 15:50 Pulse 82 11/10/17 15:50 Resp 22 H 11/10/17 15:50 BP 114/60 11/10/17 15:50 Pulse Ox 91 L 11/10/17 15:50 Weight - Most Recent: 92.986 kg I&O - Last 24 Hours: Intake & Output 11/10/17 11/10/17 11/10/17 06:59 14:59 22:59 Intake Total 560 50 426 Output Total 600 400 Balance -40 50 26 Lab Results Last 24 Hours: Laboratory Results - last 24 hr 11/10/17 11/10/17 Range/Units 05:14 05:14 WBC 14.86 H (4.0-11.0) K/uL RBC 4.20 L (4.30-5.90) M/uL Hgb 12.2 (12.0-16.0) g/dL Hct 36.8 (36.0-46.0) % MCV 87.6 (80.0-98.0) fL MCH 29.0 (27.0-32.0) pg MCHC 33.2 (31.0-37.0) g/dL RDW Std Deviation 44.7 (28.0-62.0) fl RDW Coeff of Alexandro 14 (11.0-15.0) % Plt Count 234 (150-400) K/uL MPV 10.30 (7.40-12.00) fL Add Manual Diff YES Neutrophils % (Manual) 82 H (48.0-80.0) % Band Neutrophils % 3 % Lymphocytes % (Manual) 10 L (16.0-40.0) % Monocytes % (Manual) 5 (0.0-15.0) % Nucleated RBC % 0.0 /100WBC Absolute Seg Neuts 12.2 H (1.4-5.7) Band Neutrophils # 0.4 Lymphocytes # (Manual) 1.5 (0.6-2.4) Monocytes # (Manual) 0.7 (0.0-0.8) Nucleated RBCs # 0 K/uL Sodium 139 (136-146) mmol/L Potassium 3.6 (3.5-5.1) mmol/L Chloride 102 (98-110) mmol/L Carbon Dioxide 26 (21-31) mmol/L BUN 39 H (6.0-23.0) mg/dL Creatinine 1.3 (0.6-1.5) mg/dL Est Cr Clr Drug Dosing 31.77 mL/min Estimated GFR (MDRD) 39.3 ml/min Glucose 198 H (60-110) mg/dL Calcium 9.3 (8.8-10.8) mg/dL Joe Results Last 24 Hours: Microbiology 11/08/17 19:35 Gram Stain - Final Sputum - Expectorated Sputum Culture - Final Normal Respiratory Corrie 11/08/17 22:10 Urine Culture - Final Urine, Voided MIXED CORRIE >100,000 CFU/ML Med Orders - Current: Current Medications Acetaminophen (Tylenol) 650 mg PO Q4H PRN PRN Reason: Pain Last Admin: 11/10/17 15:36 Dose: 650 mg Albuterol (Proventil Neb Soln) 2.5 mg NEB Q2H PRN PRN Reason: Shortness Of Breath/wheezing Albuterol/Ipratropium (Duoneb 3.0-0.5 Mg/3 Ml) 3 ml NEB Q6HRRT [facility] Last Admin: 11/10/17 11:20 Dose: 3 ml Azithromycin (Zithromax) 500 mg PO Q24H [facility] Last Admin: 11/10/17 09:40 Dose: 500 mg Heparin Sodium (Porcine) (Heparin Sodium) 5,000 units SUBCUT Q12HR [facility] Last Admin: 11/10/17 08:55 Dose: 5,000 units Ceftriaxone Sodium/Dextrose 2 (gm/ Premix) 50 mls @ 100 mls/hr IV Q24H [facility] Last Admin: 11/10/17 09:40 Dose: 100 mls/hr Sodium Chloride (Normal Saline) 1,000 mls @ 125 mls/hr IV .BOLUS ONE Stop: 11/10/17 16:45 Last Admin: 11/10/17 08:53 Dose: 125 mls/hr Montelukast Sodium (Singulair) 10 mg PO BEDTIME [facility] Last Admin: 11/09/17 21:22 Dose: 10 mg Fluticasone/Salmeterol (Advair Diskus 250-50) 1 puff INH BID [facility] Last Admin: 11/10/17 09:04 Dose: 1 puff Sodium Chloride (Saline Flush) 10 ml FLUSH ASDIRECTED PRN PRN Reason: Keep Vein Open Last Admin: 11/08/17 15:31 Dose: 10 ml Sodium Chloride (Saline Flush) 2.5 ml FLUSH ASDIRECTED PRN PRN Reason: Keep Vein Open Last Admin: 11/08/17 15:31 Dose: 2.5 ml Discontinued Medications Albuterol/Ipratropium (Duoneb 3.0-0.5 Mg/3 Ml) 3 ml NEB ONETIME ONE Stop: 11/08/17 14:58 Last Admin: 11/08/17 15:23 Dose: 3 ml Albuterol/Ipratropium (Duoneb 3.0-0.5 Mg/3 Ml) 3 ml NEB Q4HRRT [facility] Last Admin: 11/09/17 13:50 Dose: 3 ml Aspirin (Aspirin) 81 mg PO DAILY [facility] Last Admin: 11/09/17 12:41 Dose: Not Given Levofloxacin/Dextrose 500 mg/ (Premix) 100 mls @ 100 mls/hr IV ONETIME ONE Stop: 11/08/17 16:56 Last Admin: 11/08/17 16:20 Dose: 100 mls/hr Sodium Chloride (Normal Saline) 1,000 mls @ 125 mls/hr IV STAT ONE Stop: 11/08/17 23:56 Last Admin: 11/08/17 16:20 Dose: 125 mls/hr Levofloxacin/Dextrose 750 mg/ (Premix) 150 mls @ 100 mls/hr IV Q48H [facility] Sodium Chloride (Normal Saline) 1,000 mls @ 250 mls/hr IV ASDIRECTED [facility] Stop: 11/08/17 21:29 Last Admin: 11/08/17 17:38 Dose: 250 mls/hr Levofloxacin/Dextrose 250 mg/ (Premix) 50 mls @ 50 mls/hr IV 11/08/17@1800 [facility] Stop: 11/08/17 18:59 Last Admin: 11/08/17 17:51 Dose: 50 mls/hr Levofloxacin/Dextrose 250 mg/ (Premix) 50 mls @ as directed IV .STK-MED ONE Stop: 11/08/17 15:58 Sodium Chloride (Normal Saline) 1,000 mls @ 125 mls/hr IV .BOLUS ONE Stop: 11/09/17 18:19 Last Admin: 11/09/17 10:52 Dose: 125 mls/hr - Exam General: Alert, Oriented, Cooperative, No Acute Distress Neck: Supple, No JVD Lungs: Normal Respiratory Effort, Decreased Breath Sounds, Crackles Cardiovascular: Regular Rate, Regular Rhythm Back Exam: Normal Inspection Extremities: Normal Inspection, No Pedal Edema, Normal Capillary Refill Skin: Dry, Intact Neurological: No New Focal Deficit - Problem List Review Problem List Initiated/Reviewed/Updated: Yes - My Orders Last 24 Hours: My Active Orders 11/10/17 08:46 Sodium Chloride 0.9% [Normal Saline] 1,000 ml IV .BOLUS - Plan Plan:: This 82 year old female with history of Chronic Respiratory Failure on Home O2 admitted for Hypoxia and Sepsis secondary to CAP #Sepsis, secondary to CAP -hypoxia, hypotension, leukocytosis, BL plural infiltrates on CXR and elevated Lactic Acid at admission -BC NGTD, SC negative, UC negative -Leukocytosis improving, currently 14k -on Rocephin IV and Azithromycin PO, currently antibiotic day 3 plan: -continue Rocephin IV and Azithromycin PO -monitor wbc #CAP -plan as per above #Acute on Chronic Respiratory Failure, improved -on Home O2 at 3L during sleep -currently on 3L O2 continuously during day plan: -wean O2 #PEDRO, likely secondary to hypoperfusion, improved -Cr improved from 1.8 to 1.3 with IV NS 1L bolus, baseline 1.2 -elevated BUN but improving plan -administer IV NS 1L bolus at 125 ml/hour -strict I&O's and monitor renal function #COPD, stable -duonebs -continue home advair, proventin and singulair #HTN, controlled -home bp meds held at admission -blood pressure labile therefore continue to hold VTE prophylaxis: Heparin BID Dispo: 1-2 days pending improvement. patient is to return to home in [place] on Nov 15.
[2017-11-10] MEDS: Montelukast 10 MG Tab PO SCH (20:17)
[2017-11-11] MEDS: Albuterol/Ipratropium 3.0-0.5 MG/3 ML Neb Soln NEB SCH ×2 (06:10→12:10)
[2017-11-11] MEDS: Heparin Sodium 5,000 Units/ML Vial SUBCUT SCH ×2 (08:34→08:37)
[2017-11-11] MEDS: Fluticasone/Salmeterol 250-50 MCG Inhalation Powder 14/Diskus INH SCH (09:33)
[2017-11-11] MEDS: Azithromycin 250 MG Tab PO SCH (09:46)
[2017-11-11] MEDS: cefTRIAXone 2 GM in Premix Bag 1 BAG IV SCH (09:47)
--- NOTE | 2017-11-11 09:50 | PCM.DCSUM1 ---
Discharge Summary - Hospital Course Free Text/Narrative:: This 82 year old female with history of Chronic Respiratory Failure on Home O2 admitted on 11/08 for Hypoxia and Sepsis secondary to CAP. She was discharged home 11/11/17. She is from [facility] and has her own PCP there she will follow- up with in 1 week. At discharge she was pain free, afebrile, tolerating PO intake, producing urine. #Sepsis, secondary to CAP -hypoxia, hypotension, leukocytosis, BL plural infiltrates on CXR and elevated Lactic Acid at admission -BC NGTD, SC negative, UC negative -Leukocytosis still present, currently 14k -received 4 days of IV antibiotics plan: -due to persistence of Leukocytosis and patients history of chronic respiratory failure she will be discharged home on 6 days of PO AB to total 10 days of therapy -discharge home on Augmentin 875 BID & Azithromycin 500 QD -patient is to follow-up with her PCP in [place] within 1 week #CAP -plan as per above #Acute on Chronic Respiratory Failure, improved -at home is on 3L O2 during sleep -patient was reqiring 3-4L O2 continuously -successfully weaned off daytime O2 prior to discharge plan -resume regular use of Oxygen during sleep -patient is to follow-up with her PCP in [place] within 1 week #PEDRO, likely secondary, improved -Cr normalized, BUN mildly elevated but has improved significantly plan: -encourage oral hydration #COPD, stable -resume home advair, proventin and singulair #HTN, controlled -resume home bp meds - Discharge Data Discharge Date: 11/11/17 Discharge Disposition: Home, Self-Care 01 Condition: Good - Discharge Plan Prescriptions/Med Rec: Amoxicillin/Clavulanate K [Augmentin 875 MG/125 MG] 1 tab PO BID 7 Days #14 tablet Azithromycin 500 mg PO DAILY 6 Days #6 tablet Home Medications: Home Meds Aspirin 81 mg PO DAILY 11/08/17 [History] Budesonide/Formoterol Fumarate [Symbicort 160-4.5 Mcg Inhaler] 1 inh IH ASDIRECTED PRN 11/08/17 [History] Fluticasone/Salmeterol [Advair 250-50 Diskus] 3 inhalation IH ASDIRECTED PRN [History] Furosemide [Lasix] 20 mg PO DAILY 11/08/17 [History] Lisinopril/Hydrochlorothiazide [Lisinopril-Hctz 20-12.5 mg Tab] 2 tab PO DAILY 11/08/17 [History] Montelukast [Singulair] 10 tab PO DAILY 11/08/17 [History] Potassium Chloride [Klor-Con M20] 20 meq PO DAILY 11/08/17 [History] Amoxicillin/Clavulanate K [Augmentin 875 MG/125 MG] 1 tab PO BID 7 Days #14 tablet 11/11/17 [Rx] Azithromycin 500 mg PO DAILY 6 Days #6 tablet 11/11/17 [Rx] Forms: ED Department Discharge Referrals: PCP,None [Primary Care Provider] - - General Info Functional Status: Reports: Pain Controlled, Tolerating Diet, Ambulating, Urinating - Review of Systems General: Reports: No Symptoms HEENT: Reports: No Symptoms Pulmonary: Reports: No Symptoms Cardiovascular: Reports: No Symptoms Gastrointestinal: Reports: No Symptoms Genitourinary: Reports: No Symptoms Musculoskeletal: Reports: No Symptoms Skin: Reports: No Symptoms Neurological: Reports: No Symptoms Psychiatric: Reports: No Symptoms - Patient Data Vitals - Most Recent: Last Vital Signs Temp 37.1 C 11/11/17 04:00 Pulse 62 11/11/17 04:00 Resp 19 11/11/17 04:00 BP 140/58 L 11/11/17 04:00 Pulse Ox 94 L 11/11/17 06:45 Weight - Most Recent: 92.896 kg I&O - Last 24 hours: Intake & Output 11/10/17 11/11/17 11/11/17 22:59 06:59 14:59 Intake Total 1426 400 Output Total 400 400 Balance 1026 0 Lab Results - Last 24 hrs: Laboratory Results - last 24 hr 11/11/17 11/11/17 Range/Units 04:23 04:23 WBC 14.82 H (4.0-11.0) K/uL RBC 3.97 L (4.30-5.90) M/uL Hgb 11.4 L (12.0-16.0) g/dL Hct 35.1 L (36.0-46.0) % MCV 88.4 (80.0-98.0) fL MCH 28.7 (27.0-32.0) pg MCHC 32.5 (31.0-37.0) g/dL RDW Std Deviation 44.6 (28.0-62.0) fl RDW Coeff of Alexandro 14 (11.0-15.0) % Plt Count 296 (150-400) K/uL MPV 10.40 (7.40-12.00) fL Add Manual Diff YES Neutrophils % (Manual) 75 (48.0-80.0) % Band Neutrophils % 4 % Lymphocytes % (Manual) 18 (16.0-40.0) % Monocytes % (Manual) 3 (0.0-15.0) % Nucleated RBC % 0.0 /100WBC Absolute Seg Neuts 11.1 H (1.4-5.7) Band Neutrophils # 0.6 Lymphocytes # (Manual) 2.7 H (0.6-2.4) Monocytes # (Manual) 0.4 (0.0-0.8) Nucleated RBCs # 0 K/uL Sodium 140 (136-146) mmol/L Potassium 3.8 (3.5-5.1) mmol/L Chloride 103 (98-110) mmol/L Carbon Dioxide 25 (21-31) mmol/L BUN 28 H (6.0-23.0) mg/dL Creatinine 1.0 (0.6-1.5) mg/dL Est Cr Clr Drug Dosing 41.53 mL/min Estimated GFR (MDRD) 53.2 ml/min Glucose 199 H (60-110) mg/dL Calcium 9.0 (8.8-10.8) mg/dL [facility] Results - Last 24 hrs: Microbiology 11/08/17 19:35 Gram Stain - Final Sputum - Expectorated Sputum Culture - Final Normal Respiratory Corrie 11/08/17 22:10 Urine Culture - Final Urine, Voided MIXED CORRIE >100,000 CFU/ML Med Orders - Current: Current Medications Acetaminophen (Tylenol) 650 mg PO Q4H PRN PRN Reason: Pain Last Admin: 11/10/17 15:36 Dose: 650 mg Albuterol (Proventil Neb Soln) 2.5 mg NEB Q2H PRN PRN Reason: Shortness Of Breath/wheezing Albuterol/Ipratropium (Duoneb 3.0-0.5 Mg/3 Ml) 3 ml NEB Q6HRRT [facility] Last Admin: 11/11/17 06:10 Dose: 3 ml Azithromycin (Zithromax) 500 mg PO Q24H [facility] Last Admin: 11/10/17 09:40 Dose: 500 mg Heparin Sodium (Porcine) (Heparin Sodium) 5,000 units SUBCUT Q12HR [facility] Last Admin: 11/11/17 08:37 Dose: Not Given Ceftriaxone Sodium/Dextrose 2 (gm/ Premix) 50 mls @ 100 mls/hr IV Q24H [facility] Last Admin: 11/10/17 09:40 Dose: 100 mls/hr Montelukast Sodium (Singulair) 10 mg PO BEDTIME [facility] Last Admin: 11/10/17 20:17 Dose: 10 mg Fluticasone/Salmeterol (Advair Diskus 250-50) 1 puff INH BID [facility] Last Admin: 11/10/17 20:18 Dose: 1 puff Sodium Chloride (Saline Flush) 10 ml FLUSH ASDIRECTED PRN PRN Reason: Keep Vein Open Last Admin: 11/08/17 15:31 Dose: 10 ml Sodium Chloride (Saline Flush) 2.5 ml FLUSH ASDIRECTED PRN PRN Reason: Keep Vein Open Last Admin: 11/08/17 15:31 Dose: 2.5 ml Discontinued Medications Albuterol/Ipratropium (Duoneb 3.0-0.5 Mg/3 Ml) 3 ml NEB ONETIME ONE Stop: 11/08/17 14:58 Last Admin: 11/08/17 15:23 Dose: 3 ml Albuterol/Ipratropium (Duoneb 3.0-0.5 Mg/3 Ml) 3 ml NEB Q4HRRT [facility] Last Admin: 11/09/17 13:50 Dose: 3 ml Aspirin (Aspirin) 81 mg PO DAILY [facility] Last Admin: 11/09/17 12:41 Dose: Not Given Levofloxacin/Dextrose 500 mg/ (Premix) 100 mls @ 100 mls/hr IV ONETIME ONE Stop: 11/08/17 16:56 Last Admin: 11/08/17 16:20 Dose: 100 mls/hr Sodium Chloride (Normal Saline) 1,000 mls @ 125 mls/hr IV STAT ONE Stop: 11/08/17 23:56 Last Admin: 11/08/17 16:20 Dose: 125 mls/hr Levofloxacin/Dextrose 750 mg/ (Premix) 150 mls @ 100 mls/hr IV Q48H [facility] Sodium Chloride (Normal Saline) 1,000 mls @ 250 mls/hr IV ASDIRECTED [facility] Stop: 11/08/17 21:29 Last Admin: 11/08/17 17:38 Dose: 250 mls/hr Levofloxacin/Dextrose 250 mg/ (Premix) 50 mls @ 50 mls/hr IV 11/08/17@1800 [facility] Stop: 11/08/17 18:59 Last Admin: 11/08/17 17:51 Dose: 50 mls/hr Levofloxacin/Dextrose 250 mg/ (Premix) 50 mls @ as directed IV .STK-MED ONE Stop: 11/08/17 15:58 Sodium Chloride (Normal Saline) 1,000 mls @ 125 mls/hr IV .BOLUS ONE Stop: 11/09/17 18:19 Last Admin: 11/09/17 10:52 Dose: 125 mls/hr Sodium Chloride (Normal Saline) 1,000 mls @ 125 mls/hr IV .BOLUS ONE Stop: 11/10/17 16:45 Last Admin: 11/10/17 08:53 Dose: 125 mls/hr - Exam General: Reports: Alert, Oriented, Cooperative, No Acute Distress Lungs: Reports: Normal Respiratory Effort, Other (air entry to all chao ) Cardiovascular: Reports: Regular Rate, Regular Rhythm GI/Abdominal Exam: Normal Bowel Sounds, Soft, Non-Tender Extremities: Normal Inspection, No Pedal Edema, Normal Capillary Refill Neurological: Reports: No New Focal Deficit *Q Meaningful Use (DIS) - VTE *Q VTE Criteria *Q: - Stroke *Q Stroke Criteria *Q: - AMI *Q AMI Criteria *Q:
[2017-11-11 12:33] VITALS: BP 139/55
== END 2017-11-11 12:29 | disposition home or self-care (01) | DRG 871 ==
LOC: MW.ED 14:23 → MW.MS 16:16 → UNDOADMIN 17:05 → MW.MS 17:05 → UNDODISIN 11-11 12:29
PROVIDERS: ADMIT Family Medicine; ATTEND Family Medicine
DX: A41.9 Sepsis, unspecified organism (principal); J18.9 Pneumonia, unspecified organism; J96.01 Acute respiratory failure with hypoxia; J96.10 Chronic respiratory failure, unspecified whether with hypoxia or hypercapnia; N17.9 Acute kidney failure, unspecified; R09.02 Hypoxemia; J44.9 Chronic obstructive pulmonary disease, unspecified; I10 Essential (primary) hypertension; E66.9 Obesity, unspecified; Z87.891 Personal history of nicotine dependence; Z79.82 Long term (current) use of aspirin; Z79.899 Other long term (current) drug therapy; Z99.81 Dependence on supplemental oxygen; R06.02 Shortness of breath
CPT/HCPCS: 36415; 36600; 71010; 80053; 82803; 83605; 83880; 84484; 85025; 85610; 87040 ×2; 87804 ×2; 93005; 94640; 96365; 99284; J1956 ×2; J7040; 80048; 81001; 87070; 87086; 87205; A9270-GY; J0696; J1644